=== PATIENT | female | born 1965 ===

== ENCOUNTER 2017-11-11 11:55 | Emergency (ER) | payer BC, OTHER ==
[2017-11-11 12:19] VITALS: BP 128/90
[2017-11-11] MEDS ORDERED: Acetaminophen TAB* 325 MG PO ONE (13:09)
--- NOTE | 2017-11-11 13:16 | RAD ---
INDICATION: Right ankle injury. TECHNIQUE: 3 views of the right ankle were obtained. FINDINGS: The bones are in normal alignment. No fracture is seen. Joint spaces appear maintained. IMPRESSION: NO EVIDENCE FOR FRACTURE.
--- NOTE | 2017-11-11 13:16 | UC ---
Lower Extremity/Ankle HPI - HPI Summary HPI Summary: Right foot and ankle pain after a fall. She was walking up a step and stumbled and right foot bent in. She has pain and tenderness. No knee or back injury. - History of Current Complaint Chief Complaint: UCTrauma Stated Complaint: RIGHT ANKLE INJURY Time Seen by Provider: 11/11/17 12:41 Hx Obtained From: Patient Onset/Duration: Sudden Onset, Lasting Hours Severity Initially: Moderate Severity Currently: Moderate Pain Intensity: 8 Aggravating Factor(s): Standing, Ambulation Alleviating Factor(s): Rest, Elevation Able to Bear Weight: No - Risk Factors Gout Risk Factors: Age Over 40 - Allergies/Home Medications Allergies/Adverse Reactions: Allergies Allergy/AdvReac Type Severity Reaction Status Date / Time topical antibiotics Allergy skin rash Uncoded 11/11/17 12:19 PMH/Surg Hx/FS Hx/Imm Hx Previously Healthy: Yes - Surgical History Surgical History: None - Family History Known Family History: Positive: Other - no related foot disease. - Social History Occupation: Employed Full-time Lives: With Family Alcohol Use: Occasionally Alcohol Amount: one beer or glass of wine Substance Use Type: None Smoking Status (MU): Former Smoker Type: Cigarettes Review of Systems Musculoskeletal: Arthralgia All Other Systems Reviewed And Are Negative: Yes Physical Exam Triage Information Reviewed: Yes Appearance: Well-Appearing, No Pain Distress, Well-Nourished Vital Signs: Initial Vital Signs Temp 98.7 F 11/11/17 12:13 Pulse 75 11/11/17 12:13 Resp 16 11/11/17 12:13 BP 128/90 11/11/17 12:13 Pulse Ox 99 11/11/17 12:13 Vital Signs Reviewed: Yes Eye Exam: Normal Eyes: Positive: Conjunctiva Clear ENT: Positive: Normal ENT inspection Neck: Positive: Supple, Nontender, No Lymphadenopathy, Nuchal Rigidity Respiratory: Positive: Normal breath sounds, No respiratory distress, No accessory muscle use. Negative: Respiratory distress, Decreased breath sounds, Accessory muscle use, Crackles, Rhonchi, Stridor Cardiovascular: Positive: No Murmur, Pulses Normal, Brisk Capillary Refill Abdomen Description: Positive: No Organomegaly. Negative: Distended Musculoskeletal Exam: Other - no swelling or deformity. There is tenderness or distal right 5th metatarsal. Musculoskeletal: Positive: No Edema Neurological: Positive: Alert, Muscle Tone Normal. Negative: Fatigued Skin: Negative: rashes Lower Extremity Course/Dx - Differential Dx/Diagnosis Provider Diagnoses: foot sprain. ankle sprain Discharge - Sign-Out/Discharge Documenting (check all that apply): Discharge/Admit/Transfer - Discharge Plan Condition: Good Disposition: HOME Patient Education Materials: Arthralgia (ED) Referrals: Liban Strauss MD [Primary Care Provider] - Additional Instructions: Ice elevation and rest. - Billing Disposition and Condition Condition: GOOD Disposition: Home
--- NOTE | 2017-11-11 13:36 | RAD ---
HISTORY: Distal fifth metatarsal tenderness after fall COMPARISONS: None VIEWS: 3, Frontal, lateral, and oblique views of the right foot FINDINGS: BONE DENSITY: Normal. BONES: There is no displaced fracture. There are posterior calcaneal enthesophytes. JOINTS: There is osteoarthritis of the first MTP joint. ALIGNMENT: There is no dislocation. SOFT TISSUES: Unremarkable. OTHER FINDINGS: None. IMPRESSION: OSTEOARTHRITIS. NO ACUTE OSSEOUS INJURY. IF SYMPTOMS PERSIST, RECOMMEND REPEAT IMAGING.
== END 2017-11-11 13:47 | disposition home or self-care (01) ==
LOC: UCCORT 11:55
DX: S93.401A Sprain of unspecified ligament of right ankle, initial encounter (principal); S93.601A Unspecified sprain of right foot, initial encounter; W10.9XXA Fall (on) (from) unspecified stairs and steps, initial encounter; Y93.01 Activity, walking, marching and hiking; Y92.9 Unspecified place or not applicable; Z87.891 Personal history of nicotine dependence; Z88.1 Allergy status to other antibiotic agents
CPT/HCPCS: 99211; A9270-GY; G0463